=== PATIENT | female | born 1975 | race Caucasian/White ===

== ENCOUNTER 2018-06-09 12:12 | Emergency (ER) | payer OTHER ==
[2018-06-09 12:22] VITALS: BP 146/97
[2018-06-09] MEDS ORDERED: Lidocaine 2% PF * 5 ML VIAL INJ ONE (12:22)
[2018-06-09] MEDS ORDERED: Tetan/Diph/Pertus SYR(Tdap)* 0.5 ML SYR(BOOSTRIX) use SYR IM ONE (12:22)
--- NOTE | 2018-06-09 12:22 | UC ---
Laceration HPI - HPI Summary HPI Summary: 43 yo female presents with head injury. She tells me that she was painting on a ladder (approx 10 feet off the ground), when the ladder slipped. She fell onto the ground and the ladder fell on top of her face - mostly the right cheek/eye/ forehead. She did not lose consciousness. She sustained a small laceration to the right medial eyebrow/nasal bridge. She applied pressure to the area and her friend drove her directly to . She has not taken anything OTC for her discomfort. Currently her pain is around her right eye, right cheek, and nose. Also has a small abrasion to her right huang. She is ambulatory without assistance. Denies headache, dizziness, difficulty breathing, trismus, SOB, chest pain, abdominal pain, vomiting. - History Of Current Complaint Chief Complaint: UCLaceration Stated Complaint: FACIAL LAC Time Seen by Provider: 06/09/18 12:21 Hx Obtained From: Patient Hx Last Menstrual Period: 05/21/13 Laceration Location: Face Mechanism Of Injury: Blunt Trauma Onset/Duration: Sudden Onset Severity: Severe Pain Intensity: 9 Pain Scale Used: 0-10 Numeric - Allergies/Home Medications Allergies/Adverse Reactions: Allergies Allergy/AdvReac Type Severity Reaction Status Date / Time No Known Allergies Allergy Verified 04/18/12 08:25 PMH/Surg Hx/FS Hx/Imm Hx - Additional Past Medical History Additional PMH: None - Surgical History Surgical History: Yes Surgery Procedure, Year, and Place: Cleft palate repair at - Family History Known Family History: Positive: None - Social History Lives: With Family Alcohol Use: Occasionally Substance Use Type: None Type: Cigarettes Amount Used/How Often: 2 cigarettes/month Length of Time of Smoking/Using Tobacco: 10 years Have You Smoked in the Last Year: Yes Review of Systems All Other Systems Reviewed And Are Negative: Yes Constitutional: Positive: Negative Skin: Positive: Other - Laceration face Eyes: Positive: Negative ENT: Positive: Negative Respiratory: Positive: Negative Cardiovascular: Positive: Negative Gastrointestinal: Positive: Negative Neurovascular: Positive: Negative Musculoskeletal: Positive: Other: - Right orbital/face pain Neurological: Positive: Negative Psychological: Positive: Negative Physical Exam - Summary Physical Exam Summary: GENERAL: NAD. WDWN. No pain distress. Applying ice to face. SKIN: Right medial eyebrow with 1.0cm linear vertical laceration with 2-3mm width. Superficial abrasion right cheek and nasal bridge. Superficial abrasion right huang. HEENT: Head: See skin. Eyes: EOM intact and without pain. No diplopia in any direction. PERRLA. TTP all about right orbit. Ears: Hearing grossly normal. TMs intact, no bulging, erythema, or edema. Nose: Nasal mucosa on right with dried blood. TTP right maxilla. Throat: Posterior oropharynx without exudates, erythema, or tonsillar enlargement. Uvula midline. No trismus. Opens and closes jaw with little pain. NECK: Supple. Nontender. FROM. CHEST: CTAB. No r/r/w. No accessory muscle use. Breathing comfortably and in no distress. CV: RRR. Without m/r/g. Pulses intact. Cap refill <2seconds NEURO: A&Ox3. 3 word recall, remote, recent memory, ability to follow 2-step directions, and attention intact. CN: II: Peripheral leal intact. Vision normal. III, IV, : EOMI. No nystagmus. PERRLA. V: Sensations intact and symmetric. Opens mouth and clenches teeth. VII: No facial asymmetry. Forehead wrinkles. Grins, shuts eyes, frowns, puffs cheeks. VIII: Hearing intact to finger rub. IX, X: Swallows and coughs. Uvula midline. XI: Shrugs shoulders. Turns head against resistance. XII: No tongue deviation [id number] are intact. Gait with normal base. Romberg: maintains balance, no pronator drift. Normal speech. No facial drooping. PSYCH: Age appropriate behavior. Triage Information Reviewed: Yes Vital Signs: Vital Signs: Temp Pulse Resp BP Pulse Ox 98.3 F 93 18 146/97 0 06/09/18 12:19 06/09/18 12:19 06/09/18 12:19 06/09/18 12:19 06/09/18 12:19 Vital Signs Reviewed: Yes Laceration Repair - Laceration Repair 1 Description: Linear Laceration Size After Repair: Length (cm) - 1.0 Modified For Repair: No Type Injection: Local Anesthesia Used: 2.0% Lido Cleansing Completed Via Routine Prep: Yes Closure Material: Sutures - #4 Closure Method: Single Layer Suture Of: Skin Suture Type: Prolene - 6-0 Laceration Course/Dx - Course/Dx Course Of Treatment: CT head: IMPRESSION: There is no evidence of intracranial mass or hemorrhage present. CT maxillofacial IMPRESSION: Likely tripod fracture involving the inferior and lateral wall of the right orbit, anterior and lateral wall of the maxillary sinus and extending to the zygomatic arch. No obvious entrapment of the inferior rectus muscle is noted. Minimally depressed fracture of the right Nasal arch. Spoke to Dr. Marquez regarding above findings. He recommended that if her eye exam is WNL, he will see pt in the office in 4-5 days. I do not see any ophthalmic findings or indications of entrapment on exam today , but given the multiple fractures and KADY - will have her see Dr. Grimaldo today for specialist evaluation. Spoke to Dr. Grimaldo's office and they will see pt today following this visit. Discussed above findings with pt and she is agreeable to the plan. Regarding her laceration; The procedure was explained to the pt and all questions were answered. A time out was performed, witnessed, and signed. The area was cleansed with NS. 1mL of 2% lidocaine without epi was administered and good anesthetization was achieved. In the usual sterile fashion, FOUR 6-0 prolene interrupted sutures were placed. Pt tolerated procedure well. Advised to continue to apply ice and will rx for tramadol for pain prn. Will start her on Augmentin for prophylactic infection. F/u with Dr. Marquez as above. If she develops severe headache, dizziness, vomiting, vision changes, or worsening pain - go directly to the ED. - Diagnosis Provider Diagnosis: Closed tripod fracture of zygomaticomaxillary complex, Facial laceration, Head injury Discharge - Sign-Out/Discharge Documenting (check all that apply): Patient Departure All imaging exams completed and their final reports reviewed: Yes - Discharge Plan Condition: Stable Disposition: HOME Prescriptions: Amoxicillin/Clavulanate TAB* [Augmentin TAB 875*] 875 mg PO BID #14 tab traMADol TAB* [Ultram*] 50 mg PO Q12H PRN #8 tab MDD 2 PRN Reason: Pain Patient Education Materials: Care For Your Stitches (DC), Laceration (DC), Facial Fracture (ED) Referrals: Lou Bennett MD [Primary Care Provider] - Theo Grimaldo MD [Medical Doctor] - As Soon As Possible Sin Mccall MD [Medical Doctor] - 4 Days Additional Instructions: If you develop a fever, shortness of breath, chest pain, new or worsening symptoms - please call your PCP or go to the ED. Your blood pressure was high at todays visit. Please see your primary provider within 4 weeks for recheck and re-evaluation. 1) Please apply ice to your face to reduce pain and swelling 2) Please go directly to Dr. Grimaldo's office at the location below for further evaluation of your eye 3) Please call ENT at the number below to schedule an appointment for later this week regarding your facial fractures 4) If you develop difficulty swallowing, breathing, or moving your eye - please go to the ER 5) You may return here to have your stitches out in 4-5 days - Billing Disposition and Condition Condition: STABLE Disposition: Home
[2018-06-09] MEDS ORDERED: Ibuprofen TAB* 600 MG PO ONE (12:47)
== END 2018-06-09 14:18 | disposition home or self-care (01) ==
LOC: UCEAST 12:12
DX: S02.40EA Zygomatic fracture, right side, initial encounter for closed fracture (principal); S01.111A Laceration without foreign body of right eyelid and periocular area, initial encounter; W11.XXXA Fall on and from ladder, initial encounter; F17.210 Nicotine dependence, cigarettes, uncomplicated
CPT/HCPCS: 12011; 70450; 70486; 90715; 99212; A9270-GY; G0463

== ENCOUNTER 2018-08-16 14:48 | Emergency (ER) | payer OTHER ==
[2018-08-16 14:56] VITALS: BP 129/79
--- NOTE | 2018-08-16 15:06 | UC ---
Skin Complaint HPI - HPI Summary HPI Summary: tick bite right inner thigh 2 weeks ago---in the past 7 days the area has been getting larger now 12 cm diameter - History of Current Complaint Chief Complaint: UCSkin Time Seen by Provider: 08/16/18 14:49 Stated Complaint: TICK BITE Hx Obtained From: Patient Hx Last Menstrual Period: 1 week ago ?: No Onset/Duration: Sudden Onset, Lasting Weeks - 2, Worse Since - past week Skin Exposure Onset/Duration: Weeks Ago - 2 Timing: Constant Pain Intensity: 1 Pain Scale Used: 0-10 Numeric Location: Discrete Character: Redness Aggravating Factor(s): Nothing Alleviating Factor(s): Nothing Associated Signs & Symptoms: Positive: Rash Related History: Possible Reaction to: Insect - Allergy/Home Medications Allergies/Adverse Reactions: Allergies Allergy/AdvReac Type Severity Reaction Status Date / Time No Known Allergies Allergy Verified 08/16/18 14:56 Home Medications: Home Medications Cetirizine* [ZyrTEC 10 MG TAB*] 10 mg PO DAILY 08/16/18 [History Confirmed 08/16] Ibuprofen TAB* [Advil TAB*] 800 mg PO ONCE PRN 08/16/18 [History Confirmed 08/16] PMH/Surg Hx/FS Hx/Imm Hx Previously Healthy: Yes - Surgical History Surgical History: Yes Surgery Procedure, Year, and Place: Cleft palate repair at - Family History Known Family History: Positive: None - Social History Occupation: Employed Full-time Lives: With Family Alcohol Use: Occasionally Substance Use Type: None Smoking Status (MU): Former Smoker Type: Cigarettes Amount Used/How Often: 2 cigarettes/month Length of Time of Smoking/Using Tobacco: 10 years Have You Smoked in the Last Year: Yes Review of Systems All Other Systems Reviewed And Are Negative: Yes Constitutional: Positive: Negative Skin: Positive: Rash - spreading circular no raised rash around site of tick bite 2 weeks ago Eyes: Positive: Negative ENT: Positive: Negative Respiratory: Positive: Negative Cardiovascular: Positive: Negative Gastrointestinal: Positive: Negative Genitourinary: Positive: Negative Motor: Positive: Negative Neurovascular: Positive: Negative Musculoskeletal: Positive: Negative Neurological: Positive: Negative Psychological: Positive: Negative Is Patient Immunocompromised?: No Physical Exam Triage Information Reviewed: Yes Appearance: Well-Appearing, No Pain Distress, Well-Nourished Vital Signs: Initial Vital Signs Temp 98 F 08/16/18 14:52 Pulse 100 08/16/18 14:52 Resp 16 08/16/18 14:52 BP 129/79 08/16/18 14:52 Pulse Ox 99 08/16/18 14:52 Vital Signs Reviewed: Yes Eye Exam: Normal Eyes: Positive: Conjunctiva Clear ENT Exam: Normal ENT: Positive: Normal ENT inspection, Hearing grossly normal. Negative: Nasal congestion, Trismus, Muffled voice, Hoarse voice Dental Exam: Normal Neck exam: Normal Neck: Positive: Supple, Nontender Respiratory Exam: Normal Respiratory: Positive: No respiratory distress, No accessory muscle use Cardiovascular Exam: Normal Cardiovascular: Positive: RRR, Pulses Normal, Brisk Capillary Refill Musculoskeletal Exam: Normal Musculoskeletal: Positive: Strength Intact, ROM Intact, No Edema Neurological Exam: Normal Neurological: Positive: Alert Psychological Exam: Normal Skin: Positive: Other - 12 cm diameter-rash at site of tick bite 2 weeks ago Course/Dx - Course Course Of Treatment: will draw lyme titer , start Doxycycline and patient will follow with pcp this week - Diagnoses Provider Diagnosis: Tick bite, Acute Lyme disease with erythema migrans lesion 5 cm or greater in diameter Discharge - Sign-Out/Discharge Documenting (check all that apply): Patient Departure All imaging exams completed and their final reports reviewed: No Studies - Discharge Plan Condition: Stable Disposition: HOME Patient Education Materials: Doxycycline (By mouth), Lyme Disease (ED), Tick Bite (ED) Referrals: Lou Bennett MD [Primary Care Provider] - 7 Days - Billing Disposition and Condition Condition: STABLE Disposition: Home
== END 2018-08-16 15:25 | disposition home or self-care (01) ==
LOC: UCEAST 14:48
DX: A69.20 Lyme disease, unspecified (principal); T63.481A Toxic effect of venom of other arthropod, accidental (unintentional), initial encounter; Y92.9 Unspecified place or not applicable; Z87.891 Personal history of nicotine dependence
CPT/HCPCS: 36415; 86618; 99212; G0463